=== PATIENT | male | born 1935 | race Caucasian/White ===

== ENCOUNTER → 2016-02-18 | Outpatient (CLI) | payer OTHER ==
--- NOTE | 2016-02-18 16:36 | RAD ---
EXAM DESCRIPTION: XR CERVICAL SPINE 2 - 3 VIEWS CLINICAL HISTORY: UNSP MALIGNANT NEOPLASM COMPARISON: None available FINDINGS: Three views of the cervical spine foot show no vertebral body fracture or subluxation. There is no lytic or sclerotic bone lesion. Spine as well seen only to the C5 level on the lateral view. The spinous processes appear intact. There is no prevertebral soft tissue swelling. There are degenerative changes in the cervical spine at several levels including facet joint degeneration. IMPRESSION: Mild multilevel degenerative changes, but no acute cervical spine abnormality. No radiographic evidence of bony metastatic disease. Electronically signed by: Maurilio Abdullahi DO 02/18/2016 16:34
--- NOTE | 2016-02-18 16:36 | RAD ---
EXAM DESCRIPTION: XR SHOULDER 2 OR MORE VIEWS CLINICAL HISTORY: UNSP MALIGNANT NEOPLASM COMPARISON: None available FINDINGS: Two views of the left shoulder show no acute fracture or malalignment. There are degenerative changes in the left glenohumeral joint including joint space narrowing and osteophyte formation. The left AC joint appears fairly well maintained. There is no apparent left-sided rib fracture. There is a questionable ovoid soft tissue density mass in the supraclavicular soft tissues measuring up to 3 cm diameter. IMPRESSION: Possible 3 cm soft tissue mass in the left supraclavicular region. Adenopathy is not excluded. CT chest and/or neck with IV contrast may be helpful for further evaluation. Degenerative changes in the left glenohumeral joint, otherwise unremarkable exam. Electronically signed by: Maurilio Abdullahi DO 02/18/2016 16:33
--- NOTE | 2016-02-20 17:16 | CT ---
EXAM DESCRIPTION: CT UPPER EXTREMITY WITHOUT THEN WITH IV CONTRAST CLINICAL HISTORY: 80 y/o M, SOFT TISSUE DISORDER COMPARISON: None TECHNIQUE: Thin slice axial imaging of the left shoulder was performed with IV contrast. Data was reconstructed for interpretation. FINDINGS: No evidence of carotid artery narrowing on today's study. Limited images of the mediastinum demonstrate no lymphadenopathy. The left lung demonstrates no evidence of nodularity or emphysematous changes. There is degenerative change of the acromioclavicular joint with articular cartilage loss, subchondral sclerosis and osteophyte formation. The glenohumeral interval is unremarkable measuring 7 mm in diameter. There is severe near complete articular cartilage loss of the glenohumeral joint with subchondral sclerosis, micro cyst formation osteophyte formation. There is no evidence of a fracture on today's study. No evidence of rotator cuff muscle atrophy. IMPRESSION: Today's exam demonstrates severe degenerative change of the glenohumeral joint and acromioclavicular joint with near complete joint space loss, osteophyte formation and subchondral cystic change. No evidence of fracture on today's exam. No evidence of rotator cuff muscle atrophy. Electronically signed by: Frantz Tate MD 02/20/2016 17:14
== END ==
LOC: RAD 15:47
PROVIDERS: ATTEND Nurse Practitioner Family
DX: C44.601 Unspecified malignant neoplasm of skin of unspecified upper limb, including shoulder (principal); M54.2 Cervicalgia; M25.519 Pain in unspecified shoulder; M12.88 Other specific arthropathies, not elsewhere classified, other specified site; M12.812 Other specific arthropathies, not elsewhere classified, left shoulder; I10 Essential (primary) hypertension; M79.9 Soft tissue disorder, unspecified

== ENCOUNTER → 2016-11-16 | Outpatient (CLI) | payer OTHER ==
--- NOTE | 2016-11-16 13:09 | RAD ---
EXAM DESCRIPTION: Foot,Right 3 Views CLINICAL HISTORY: 81 years Male, PAIN COMPARISON: None. FINDINGS: 3 views of the right foot show no acute fracture or malalignment. There is a moderate-sized plantar calcaneal enthesophyte. No radiopaque foreign body or soft tissue gas. IMPRESSION: Calcaneal spurring, otherwise unremarkable exam. Electronically signed by: Maurilio Abdullahi MD 11/16/2016 1:07 PM CDT
--- NOTE | 2016-11-16 13:09 | RAD ---
EXAM DESCRIPTION: Foot,Left 3 Views CLINICAL HISTORY: 81 years Male, PAIN COMPARISON: None. FINDINGS: 3 views of the left foot show no acute fracture or malalignment. There is no joint space narrowing. There is a small plantar calcaneal enthesophyte. No radiopaque foreign body or soft tissue gas. IMPRESSION: Calcaneal spurring, otherwise unremarkable exam. Electronically signed by: Maurilio Abdullahi MD 11/16/2016 1:08 PM CDT
== END ==
LOC: RAD 08:39
PROVIDERS: ATTEND Orthopaedic Surgery
DX: M79.671 Pain in right foot (principal); M79.672 Pain in left foot; M77.32 Calcaneal spur, left foot; M77.31 Calcaneal spur, right foot

== ENCOUNTER 2018-02-28 08:00 | Day surgery (SDC) | payer OTHER ==
[2018-02-28] MEDS ORDERED: TROP 1%/CYCLOPEN 1%/PHENYL 2% DROPS OPHTH ONE (09:30)
[2018-02-28] MEDS ORDERED: PROPARACAINE 0.5% OPHTH SOL 15 ML BTTL RIGHT_EYE ONE (09:33)
[2018-02-28] MEDS ORDERED: LIDOCAINE 1% 2 ML VIAL INJ ONE (09:41)
[2018-02-28] MEDS ORDERED: TOBRAMYCIN SULF 0.3 % OPHT SOL 1 DROP RIGHT_EYE ONE ×2 (09:42→09:52)
[2018-02-28] MEDS ORDERED: DEXAMETHASONE 0.1% OPHTH SOL 1 DROP RIGHT_EYE ONE ×2 (09:42→09:52)
[2018-02-28] MEDS ORDERED: BRIMONIDINE 0.2% OPHTH DROPS RIGHT_EYE ONE ×2 (09:42→09:52)
[2018-03-01] MEDS ORDERED: MIDAZOLAM INJ 2 MG/2 ML VIAL IV ONE ×2 (09:29→09:38)
== END 2018-02-28 10:31 | disposition home or self-care (01) ==
LOC: AMB 08:00
PROVIDERS: ATTEND Ophthalmology
DX: H25.11 Age-related nuclear cataract, right eye (principal); I10 Essential (primary) hypertension; Z85.038 Personal history of other malignant neoplasm of large intestine

== ENCOUNTER 2018-03-14 05:29 | Day surgery (SDC) | payer OTHER ==
[2018-03-14] MEDS ORDERED: PROPARACAINE 0.5% OPHTH SOL 15 ML BTTL ONE (05:49)
[2018-03-14] MEDS ORDERED: MOXIFLOXACIN HCL (OPHTH) 1 DROP DROPS ONE (05:49)
[2018-03-14] MEDS ORDERED: TROP 1%/CYCLOPEN 1%/PHENYL 2% DROPS ONE (05:49)
[2018-03-14] MEDS ORDERED: MIDAZOLAM INJ 2 MG/2 ML VIAL ONE (06:54)
[2018-03-14] MEDS ORDERED: LIDOCAINE 1% MPF 5 ML VIAL INJ ONE (08:40)
[2018-03-14] MEDS ORDERED: MOXIFLOXACIN HCL (OPHTH) 1 DROP DROPS LEFT_EYE ONE ×2 (08:41→08:53)
[2018-03-14] MEDS ORDERED: BRIMONIDINE 0.2% OPHTH DROPS LEFT_EYE ONE ×2 (08:41→08:53)
[2018-03-14] MEDS ORDERED: TOBRAMYCIN SULF 0.3 % OPHT SOL 1 DROP LEFT_EYE ONE ×2 (08:41→08:53)
[2018-03-14] MEDS ORDERED: DEXAMETHASONE 0.1% OPHTH SOL 1 DROP LEFT_EYE ONE ×2 (08:41→08:53)
== END 2018-03-14 09:33 | disposition home or self-care (01) ==
LOC: AMB 05:29
PROVIDERS: ATTEND Ophthalmology
DX: H26.8 Other specified cataract (principal); I10 Essential (primary) hypertension; F17.290 Nicotine dependence, other tobacco product, uncomplicated; Z85.038 Personal history of other malignant neoplasm of large intestine
CPT/HCPCS: 00142; 66984; J2250

== ENCOUNTER 2018-05-19 09:40 | Inpatient (IN) | payer OTHER ==
--- NOTE | 2018-05-19 10:15 | ED.PDOC ---
History of Present Illness - General Chief Complaint: Lower Extremity Injury Stated Complaint: L hip discomfort and deformity Time Seen by Provider: 05/19/18 10:01 Source: patient Exam Limitations: no limitations - History of Present Illness Initial Comments: PT WALKING DOWN SOME STEPS WHEN HE SLIPPED AND FELL ON HIS BUTTOCKS. C/O PAIN TO L HIP Severity: moderate Improving Factors: nothing Worsening Factors: movement Associated Symptoms: denies symptoms Allergies/Adverse Reactions: Allergies NO KNOWN ALLERGY Allergy (Verified 05/19/18 09:50) Home Medications: Ambulatory Orders Omeprazole 20 mg PO DAILY 05/19/18 Ondansetron [Ondansetron Odt] 4 mg PO TID PRN 05/19/18 Probiotic Product [Restora] 1 cap PO DAILY 05/19/18 Review of Systems - Review of Systems Constitutional: States: no symptoms reported EENTM: States: no symptoms reported Respiratory: Denies: short of breath Cardiology: Denies: chest pain, syncope Gastrointestinal/Abdominal: Denies: nausea, vomiting Genitourinary: States: no symptoms reported Musculoskeletal: States: joint pain. Denies: back pain, neck pain Skin: Denies: change in color Neurological: Denies: numbness, tingling, weakness Endocrine: States: no symptoms reported Hematologic/Lymphatic: States: no symptoms reported Past Medical History (General) - Patient Medical History Hx Stroke: No Hx Congestive Heart Failure: No Hx Diabetes: No Hx Gastroesophageal Reflux: Yes Hx MRSA: No - Vaccination History Hx Tetanus, Diphtheria Vaccination: No Hx Influenza Vaccination: No Hx Pneumococcal Vaccination: No - Social History Hx Tobacco Use: No Hx Alcohol Use: Yes - Occasional Family Medical History - Family History Father Family History: No Known Living Status: Physical Exam - Physical Exam General Appearance: Alert, No apparent distress Eye Exam: bilateral normal Ears, Nose, Throat: normal ENT inspection Neck: non-tender, full range of motion, supple, normal inspection Respiratory: lungs clear, no respiratory distress Cardiovascular/Chest: regular rate, rhythm, no murmur Gastrointestinal/Abdominal: non tender, soft, no organomegaly Extremity: non-tender, normal inspection, other - NO C/T/L SPINE TTP Neurologic: no motor/sensory deficits, alert, normal mood/affect Skin Exam: normal color, warm/dry, other - NO ECCHYMOSIS Lymphatic: no adenopathy Progress - Progress Progress: 05/19/18 10:41 DR LOGAN VALENZUELA 05/19/18 10:59 D/W DR FORD WILL HAVE HOSPITALIST ADMIT SURGERY TOMORROW. D/W VIRGIL WILL ADMIT - EKG/XRAY/CT XRAY: hip - L INTERTROCHANTERIC HIP FX Departure - Departure Clinical Impression: Hip fracture Qualifiers: Encounter type: initial encounter Fracture type: closed Laterality: left Qualified Code(s): S72.002A - Fracture of unspecified part of neck of left femur, initial encounter for closed fracture Hypertension Qualifiers: Hypertension type: essential hypertension Qualified Code(s): I10 - Essential (primary) hypertension Time of Disposition: 11:05 Disposition: Admit Patient Departure Forms: ED Discharge - Pt. Copy, Patient Portal Self Enrollment Instructions: DI for Leg Pain Referrals: DIEGO ALMARAZ IV, [employer] [Primary Care Provider] - 1-2 Weeks Home Medications: Ambulatory Orders Omeprazole 20 mg PO DAILY 05/19/18 Ondansetron [Ondansetron Odt] 4 mg PO TID PRN 05/19/18 Probiotic Product [Restora] 1 cap PO DAILY 05/19/18 Decision To Admit - Decistion To Admit Decision to Admit Reason: Admit from ER Decision to Admit Date: 05/19/18 Decision to Admit Time: 10:42
[2018-05-19] MEDS ORDERED: fentaNYL CITRATE INJ 50 MCG/ML AMP IV ONE (10:38)
[2018-05-19] MEDS ORDERED: OMEPRAZOLE CAP 20 MG CAP PO ONE (10:59)
--- NOTE | 2018-05-19 11:15 | RAD ---
EXAM DESCRIPTION: Hip,Left 2 Views CLINICAL HISTORY: 82 years Male, PN, DEFORMITY COMPARISON: None available. FINDINGS: Impacted and displaced left femoral neck fracture consistent with Garden type IV femoral neck fracture. The femoral head is well contained in the acetabular fossa. The overlying soft tissues appear grossly unremarkable. IMPRESSION: 1. Garden type IV left femoral neck fracture. Electronically signed by: Edwin Rios MD 05/19/2018 11:12 AM CDT
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
[2018-05-19] MEDS ORDERED: MORPHINE SULFATE INJ 10 MG/ML VIAL ONE (12:12)
[2018-05-19] MEDS ORDERED: MORPHINE SULFATE INJ 10 MG/ML VIAL IV ONE (12:14)
[2018-05-19] MEDS ORDERED: ALUM & MAG HYDROX-SIMETHICONE 30 ML UD PO PRN (12:53)
[2018-05-19] MEDS ORDERED: ACETAMINOPHEN 325 MG TAB PO PRN (12:53)
[2018-05-19] MEDS ORDERED: MAGNESIUM HYDROXIDE 30 ML UD PO PRN (12:53)
[2018-05-19] MEDS ORDERED: MAGNESIUM SULFATE PREMIX 2GM 2 GM in PREMIX BAG 1 BAG IVPB ONE (15:11)
--- NOTE | 2018-05-19 15:13 | RAD ---
EXAM DESCRIPTION: Pelvis CLINICAL HISTORY: left hip fx s/p same level fall COMPARISON: 2 views of the left hip dated for May 2018 TECHNIQUE: AP pelvis FINDINGS: The exam demonstrates a basicervical left femoral neck fracture. Pinning of the right hip is observed. No pelvic fracture is detected. IMPRESSION: Basicervical left femoral neck fracture. Electronically signed by: Will Robbins MD 05/19/2018 3:09 PM CDT
[2018-05-19] MEDS ORDERED: MAGNESIUM SULFATE PREMIX 2GM 50 ML IVPB ONE (15:23)
[2018-05-19] MEDS: MORPHINE SULFATE INJ 10 MG/ML VIAL IV PRN (15:31)
[2018-05-19] MEDS: SODIUM CHLORIDE 0.9% (FLUSH) 10 ML SYG IV PRN (15:33)
[2018-05-19] MEDS: IV SET AND CAP CHANGE INJ INJ SCH (16:23)
[2018-05-19] MEDS: KCL 20 MEQ/NS 1,000 ML IVS PRN (16:32)
[2018-05-19] MEDS ORDERED: PANTOPRAZOLE SODIUM IV 40 MG VIAL ONE (19:18)
[2018-05-19] MEDS ORDERED: SODIUM CHLORIDE 0.9% 1000ML 1,000 ML ONE (20:59)
[2018-05-19] MEDS ORDERED: THIAMINE HCL INJ 100 MG/ML VIAL ONE (20:59)
[2018-05-19] MEDS ORDERED: MULTIPLE VITAMIN 10 ML VIAL ONE (21:00)
[2018-05-19] MEDS: MULTIPLE VITAMIN INJ 10 ML, THIAMINE HCL INJ 100 MG in SODIUM CHLORIDE 0.9% 1000ML 1,00... IVS SCH (21:20)
[2018-05-20] MEDS: KCL 20 MEQ/NS 1,000 ML IVS PRN ×2 (01:43→19:33)
[2018-05-20] MEDS: PANTOPRAZOLE SODIUM IV 40 MG VIAL IV SCH (06:06)
[2018-05-20] MEDS: ONDANSETRON INJ 4 MG/2 ML VIAL IV PRN (06:11)
[2018-05-20] MEDS: MORPHINE SULFATE INJ 10 MG/ML VIAL IV PRN (06:12)
--- NOTE | 2018-05-20 06:48 | RAD ---
Chest single view on 05/20/2018 CLINICAL INDICATION: Preop for left hip fracture fixation COMPARISON: None FINDINGS: There is mild linear atelectasis or scarring in the right lung base. Lungs are otherwise clear. Heart is upper limits normal for size. Hilar and mediastinal contours are within normal limits. Pulmonary vascularity is within normal limits. IMPRESSION: No acute disease. Electronically signed by: Chepe Harrington 05/20/2018 6:45 AM CDT
[2018-05-20] MEDS ORDERED: MAGNESIUM SULFATE PREMIX 2GM 2 GM in PREMIX BAG 1 BAG IVPB ONE (07:11)
[2018-05-20] MEDS ORDERED: MAGNESIUM SULFATE PREMIX 2GM 50 ML IVPB ONE (07:14)
--- NOTE | 2018-05-20 08:32 | CONS ---
DATE OF CONSULTATION: 05/20/18 CHIEF COMPLAINT: Left hip pain. HISTORY OF PRESENT ILLNESS: Jasper is an 81-year-old male with a history of pain in the left hip that has been present since he fell on the day of presentation. He was brought to the Emergency Room and x-rays revealed a fracture of the femoral neck. He denies any other injury associated with this, denies any loss of consciousness. I was consulted after he was admitted to our hospitalist service. PAST SURGICAL HISTORY: 1. Partial colectomy. 2. Percutaneous screw fixation of right hip fracture. 3. Multiple skin grafts. MEDICATIONS: 1. Omeprazole. ALLERGIES: NO KNOWN DRUG ALLERGIES. FAMILY HISTORY: None pertinent to today's complaint. SOCIAL HISTORY: The patient does use any illicit drugs. He does smoke and does drink on a daily basis. REVIEW OF SYSTEMS: Negative except as indicated in the History of Present Illness. PHYSICAL EXAMINATION: VITAL SIGNS: Blood pressure 155/73. Pulse 100. Respirations 16. O2 saturation 91%. Temperature 98.3. MENTAL STATUS: The patient is awake, alert, and is able to give a good history and participate in the physical. The patient is oriented to person, place and time. SKIN: Normal tone and turgor. HEENT: Normocephalic, atraumatic. Pupils equal, round and reactive. Mucosal membranes are moist. NECK: Normal range of motion. No thyromegaly, no lymphadenopathy. CHEST: Normal respiratory excursion. CARDIAC: Regular rate and rhythm. No murmurs, rubs or gallops. MUSCULOSKELETAL: Bilateral upper extremities show full range of motion without pain. Sensation is intact in the extremities and they are warm and well perfused. There is no deformity and no evidence of trauma. The right lower extremity shows no deformity. He is able to move the knee, ankle and digits. Sensation is intact. It is warm and well perfused. He has 5/5 plantar flexion strength. The left lower extremity has the leg externally rotated and slightly abducted. He does not move the leg secondary to discomfort. He has intact sensation distally and it is warm and well perfused. IMAGING: X-rays show a femoral neck fracture. ASSESSMENT: 1. Femoral neck fracture. PLAN: The plan at this point is for hemiarthroplasty. We have discussed the risks, benefits, and alternatives to that and the patient has given informed consent. #[id number] [facility]
[2018-05-20] MEDS ORDERED: ceFAZolin SODIUM 1 GM VIAL ONE (09:15)
[2018-05-20] MEDS ORDERED: VANCOMYCIN HCL INJ 1,000 MG VIAL IVPB ONE ×2 (09:50→19:21)
[2018-05-20] MEDS ORDERED: ceFAZolin SODIUM 2 GRAMS PREMI 50 ML IVPB ONE ×3 (09:50→22:45)
[2018-05-20] MEDS ORDERED: SODIUM CHLORIDE 0.9% 250ML 250 ML ONE ×2 (09:52→19:19)
[2018-05-20] MEDS ORDERED: VANCOMYCIN HCL INJ 1,000 MG in SODIUM CHLORIDE 0.9% 250ML 250 ML IVPB SCH ×2 (10:00→13:00)
[2018-05-20] MEDS ORDERED: MORPHINE SULFATE *EPIDURAL* 0.5 MG/ML VIAL ONE (10:17)
[2018-05-20] MEDS ORDERED: fentaNYL CITRATE INJ 50 MCG/ML AMP ONE (10:18)
[2018-05-20] MEDS ORDERED: BUPIVACAINE 0.5% 30 ML VIAL INJ ONE (10:20)
[2018-05-20] MEDS ORDERED: MIDAZOLAM INJ 2 MG/2 ML VIAL ONE (10:26)
[2018-05-20] MEDS ORDERED: SODIUM CHLORIDE 0.9% 1000ML 1,000 ML ONE ×3 (10:27→19:20)
[2018-05-20] MEDS ORDERED: ceFAZolin SODIUM 2 GRAMS PREMI 2 GM in PREMIX BAG 1 BAG IVPB SCH ×2 (10:30→13:00)
[2018-05-20] MEDS ORDERED: KETAMINE HCL 100 MG/ML VIAL ONE (10:50)
[2018-05-20] MEDS ORDERED: SODIUM CHLORIDE 0.9% 50 ML VIAL ONE ×3 (11:00→11:21)
[2018-05-20] MEDS ORDERED: EPINEPHrine HCL AMP 1 MG/ML AMP ONE (11:00)
[2018-05-20] MEDS ORDERED: LIDOCAINE 1% 10 ML VIAL INJ ONE (11:00)
[2018-05-20] MEDS ORDERED: ePHEDrine SULF 50 MG/ML ONE (11:00)
[2018-05-20] MEDS ORDERED: PHENYLEPHRINE INJ 1ML 10 MG/ML VIAL ONE (11:00)
[2018-05-20] MEDS ORDERED: DEXAMETHASONE INJ 10 MG/ML VIAL ONE (11:00)
[2018-05-20] MEDS ORDERED: PROPOFOL 200 MG/20 ML VIAL IV ONE (11:00)
[2018-05-20] MEDS: BUPIVACAINE LIPOSOME 13.3 MG/ML VIAL INJ ONE ×2 (11:30→12:17)
[2018-05-20] MEDS: BUPIVACAINE 0.5% 30 ML VIAL INJ ONE ×2 (11:30→12:17)
[2018-05-20] MEDS: VANCOMYCIN HCL INJ 1,000 MG VIAL IVPB ONE ×2 (11:31→12:16)
[2018-05-20] MEDS: ceFAZolin SODIUM 1 GM VIAL ONE ×2 (11:31→12:16)
[2018-05-20] MEDS ORDERED: ENOXAPARIN SODIUM 30 MG/0.3 ML SYG SUBCU SCH (13:00)
--- NOTE | 2018-05-20 13:41 | OP ---
DATE OF PROCEDURE: 05/20/18 PREOPERATIVE DIAGNOSIS: 1. Left femoral neck fracture. POSTOPERATIVE DIAGNOSIS: 1. Left femoral neck fracture. PROCEDURE: 1. Left hemiarthroplasty. SURGEON: Olman Henderson MD. FOOTBALL PAD REPAIRER: Kieran Rothman CST, SA-C. ANESTHESIA: Spinal anesthesia. COMPLICATIONS: None. FINDINGS: Transcervical femoral neck fracture. INDICATION: Mr. Lucio has a history of a fall that occurred on the day of presentation. Mr. Lucio was admitted to the hospital and I was consulted for fracture. After discussing the risks, benefits and alternatives to operative therapy, he gave informed consent for that. PROCEDURE: The patient was brought to the Operating Room and placed in supine position. Anesthesia was induced and the patient was transitioned into the lateral decubitus position. The leg and hemipelvis were sterilely prepped and draped and an incision was made centered on the greater trochanter with extension both proximally and distally. Dissection was carried down to the iliotibial band which was sharply incised along the course of its fibers. A Charnley retractor was placed and the abductor musculature was identified. The anterior one-third of the abductor musculature was elevated off the greater trochanter using electrocautery and the capsule was incised. The femoral head was removed and the primary femoral neck cut was made. The acetabulum was examined and found to be free of any significant defect, therefore attention was focused on the femur. The femoral canal was sequentially broached until an appropriate sized trial prosthesis was placed. A trial femoral head was placed and the hip was reduced. The hip was taken through a full range of motion and demonstrated stability without impingement or pending dislocation and the leg length appeared to be paresthesias. Following trialing, the trial component was removed and the femoral canal was prepared for cementation of the prosthesis. A distal cement restrictor was placed and the final component was cemented into place. The excess cement was removed and the remaining cement was allowed to cure. The final head was impacted and the hip was reduced, taken through a full range of motion, and found to be stable without impingement. The wound was thoroughly irrigated and the abductor musculature was reapproximated to the greater trochanter through drill holes using Ethibond. The repair was augmented with PDS suture and the iliotibial band was subsequently closed. The subcutaneous tissues were closed with a combination of running and interrupted subcuticular stitches, a sterile dressing was placed, and the patient was transitioned into the supine position. The patient was awoken from anesthesia and taken to the Recovery Room in stable condition. COMPONENTS: [employer] cemented stem measuring size 10 and 56 mm head, neutral neck. #[id number] MTDD
--- NOTE | 2018-05-20 14:07 | RAD ---
EXAM DESCRIPTION: Pelvis,2 or More Views CLINICAL HISTORY: 82 years Male, post op COMPARISON: May 19, 2018 FINDINGS: Two views of the pelvis demonstrate previous fixation of the right femoral head neck with threaded pins and interval placement of a bipolar prosthesis articulating with the [place] acetabulum on the left. Alignment is anatomic. IMPRESSION: Satisfactory left hip replacement with bipolar prosthesis. Electronically signed by: Paul aMrtinez MD 05/20/2018 2:04 PM CDT
--- NOTE | 2018-05-20 14:07 | RAD ---
EXAM DESCRIPTION: Hip,Left 2 Views CLINICAL HISTORY: 82 years, Male, post op COMPARISON: None TECHNIQUE: AP and frog leg lateral views of the hip FINDINGS: Two-view left hip shows total hip prosthesis in good position. No complicating process. IMPRESSION: 1. Postop changes status post hip replacement-no complicating process Electronically signed by: Freddy Mccabe MD 05/20/2018 2:04 PM CDT
[2018-05-20] MEDS: ENOXAPARIN SODIUM 30 MG/0.3 ML SYG SUBCU SCH (15:36)
[2018-05-20] MEDS ORDERED: THIAMINE HCL INJ 100 MG/ML VIAL ONE (19:20)
[2018-05-20] MEDS ORDERED: MULTIPLE VITAMIN 10 ML VIAL ONE (19:21)
[2018-05-20] MEDS: ceFAZolin SODIUM 2 GRAMS PREMI 2 GM in PREMIX BAG 1 BAG IVPB SCH (19:39)
--- NOTE | 2018-05-20 20:17 | PN ---
DATE: 05/20/18 SUPERVISING PHYSICIAN: Eddy Rivera M.D. SUBJECTIVE: The patient is lying in bed watching television. He is drinking his clear liquid. Son is at the bedside. He had his surgical procedure done today and there were no reports of any intraoperative problems. The patient has no complaints postoperatively. No complaints of nausea, vomiting, shortness of breath or chest pain. OBJECTIVE: VITAL SIGNS: Temperature 97.4, heart rate 78, blood pressure 159/76, respiratory rate 20, O2 sat 96% on 2 liters nasal cannula. RESPIRATORY: Slightly diminished at the bases but otherwise clear to auscultation. CARDIAC: Regular rate and rhythm. GASTROINTESTINAL: Abdomen is soft, nondistended, non- tender. Bowel sounds are positive. EXTREMITIES: His left lateral hip has a dressing that is dry and intact. Bilateral pedal pulses are palpable at +2. LABORATORY: CBC is basically unremarkable. Sodium is slightly low but improved from yesterday at 130, chloride 98, BUN 6, creatinine 0.62, calcium 8, magnesium 1.6. All other labs and films have been reviewed via the EMR. ASSESSMENT: 1. Left intertrochanteric hip fracture status post same level fall status post left hemiarthroplasty, postoperative day #0. 2. Electrolyte imbalance with hyponatremia, hypomagnesemia and hypokalemia may be due to frequent alcohol consumption. 3 Chronic nicotine addiction. 4. Frequent alcohol usage with no signs of withdrawal. PLAN: We will continue present supportive care. We will watch for any type of alcohol withdrawal over the next several days. Orthopedic issues will be per Dr. Olman Henderson, orthopedic surgeon. He will begin physical therapy for strengthening and conditioning tomorrow. His magnesium was replaced this morning so I will recheck his labs in the morning. His home medications have been restarted. We will encourage good pulmonary hygiene and followup closely and treat as needed. #[id number] [facility]
[2018-05-20] MEDS: VANCOMYCIN HCL INJ 1,000 MG in SODIUM CHLORIDE 0.9% 250ML 250 ML IVPB SCH (20:57)
[2018-05-20] MEDS: MULTIPLE VITAMIN INJ 10 ML, THIAMINE HCL INJ 100 MG in SODIUM CHLORIDE 0.9% 1000ML 1,00... IVS SCH (20:58)
[2018-05-21] MEDS: ENOXAPARIN SODIUM 30 MG/0.3 ML SYG SUBCU SCH ×2 (02:37→15:36)
[2018-05-21] MEDS: ceFAZolin SODIUM 2 GRAMS PREMI 2 GM in PREMIX BAG 1 BAG IVPB SCH ×2 (02:38→12:49)
[2018-05-21] MEDS: PANTOPRAZOLE SODIUM IV 40 MG VIAL IV SCH (06:04)
[2018-05-21] MEDS ORDERED: VANCOMYCIN HCL INJ 1,000 MG VIAL IVPB ONE (08:06)
[2018-05-21] MEDS ORDERED: SODIUM CHLORIDE 0.9% 250ML 250 ML ONE (08:06)
[2018-05-21] MEDS ORDERED: ceFAZolin SODIUM 2 GRAMS PREMI 50 ML IVPB ONE (08:06)
[2018-05-21] MEDS: ONDANSETRON INJ 4 MG/2 ML VIAL IV PRN ×2 (09:24→15:46)
[2018-05-21] MEDS: VANCOMYCIN HCL INJ 1,000 MG in SODIUM CHLORIDE 0.9% 250ML 250 ML IVPB SCH (10:38)
[2018-05-21] MEDS ORDERED: MAGNESIUM SULFATE PREMIX 2GM 2 GM in PREMIX BAG 1 BAG IVPB ONE (15:15)
[2018-05-21] MEDS ORDERED: MAGNESIUM SULFATE PREMIX 2GM 50 ML IVPB ONE (15:33)
--- NOTE | 2018-05-21 17:47 | PN ---
DATE: 05/21/18 SUPERVISING PHYSICIAN: Jacobo Mayes M.D. SUBJECTIVE: The patient is sleeping. He awakens easily. He has no complaints of nausea, vomiting, chest pain or shortness of breath. He also has no complaints of any alcohol withdrawals. He feels like his first day of therapy was okay. OBJECTIVE: Temperature 97, heart rate 84, blood pressure 133/71, respiratory rate 18, O2 sat 94% on room air. RESPIRATORY: Essentially clear to auscultation bilaterally. He is diminished slightly throughout all lung fox. CARDIAC: Regular rate and rhythm. GASTROINTESTINAL: Abdomen is soft, nondistended, non- tender. Bowel sounds are positive. EXTREMITIES: He has a dressing to his left lateral hip that is dry and intact. Bilateral pedal pulses are palpable at +2. LABORATORY: WBCs are 10.9 with hemoglobin 12.4, hematocrit 36.4. Sodium 130, potassium 4.2, calcium 8, magnesium 1.7. All other labs and films have been reviewed via the EMR. ASSESSMENT: 1. Left intertrochanteric hip fracture status post same level fall status post left hemiarthroplasty, postoperative day #2. 2. Electrolyte imbalance with hyponatremia, hypomagnesemia and hypokalemia may be due to frequent alcohol consumption. 3 Chronic nicotine addiction. 4. Frequent alcohol usage with no signs of withdrawal. PLAN: We will continue present supportive care. Will continue to watch for any alcohol withdrawal, but so far he has not had any issues. Orthopedic issues will be per Dr. Olman Henderson, orthopedic surgeon. Physical therapy will continue for strengthening and conditioning. I have given him some magnesium replacement and will recheck that in the morning as well as his H&H. Will continue to encourage good pulmonary hygiene. Will followup closely and treat as needed. #[id number] [facility]
[2018-05-21] MEDS: KCL 20 MEQ/NS 1,000 ML IVS PRN (18:21)
[2018-05-21] MEDS ORDERED: SODIUM CHLORIDE 0.9% 1000ML 1,000 ML ONE (19:17)
[2018-05-21] MEDS ORDERED: THIAMINE HCL INJ 100 MG/ML VIAL ONE (19:17)
[2018-05-21] MEDS ORDERED: MULTIPLE VITAMIN 10 ML VIAL ONE (19:18)
[2018-05-21] MEDS: MULTIPLE VITAMIN INJ 10 ML, THIAMINE HCL INJ 100 MG in SODIUM CHLORIDE 0.9% 1000ML 1,00... IVS SCH (21:02)
[2018-05-22] MEDS: ONDANSETRON INJ 4 MG/2 ML VIAL IV PRN ×2 (00:44→07:17)
[2018-05-22] MEDS: MORPHINE SULFATE INJ 10 MG/ML VIAL IV PRN (00:44)
[2018-05-22] MEDS: KCL 20 MEQ/NS 1,000 ML IVS PRN ×2 (02:48→15:38)
[2018-05-22] MEDS: ENOXAPARIN SODIUM 30 MG/0.3 ML SYG SUBCU SCH ×2 (02:49→15:58)
[2018-05-22] MEDS: PANTOPRAZOLE SODIUM IV 40 MG VIAL IV SCH (06:15)
[2018-05-22] MEDS ORDERED: MAGNESIUM SULFATE PREMIX 2GM 50 ML IVPB ONE (07:11)
[2018-05-22] MEDS ORDERED: MAGNESIUM SULFATE PREMIX 2GM 2 GM in PREMIX BAG 1 BAG IVPB ONE (08:00)
[2018-05-22] MEDS ORDERED: PROMETHAZINE HCL INJ 25 MG in SODIUM CHLORIDE 0.9% 50ML 50 ML IVPB PRN (09:36)
[2018-05-22] MEDS ORDERED: ALPRAZolam 0.5 MG TAB PO PRN (09:40)
[2018-05-22] MEDS: LEVALBUTEROL NEBS 1.25 MG/3 ML VIAL NEB SCH ×3 (12:46→20:20)
[2018-05-22] MEDS ORDERED: BISACODYL SUPPOSITORY 10 MG PR ONE (15:31)
[2018-05-22] MEDS ORDERED: PROMETHAZINE HCL INJ 25 MG/ML VIAL ONE (15:34)
[2018-05-22] MEDS ORDERED: SODIUM CHLORIDE 0.9% 50ML 50 ML ONE (15:35)
[2018-05-22] MEDS: IV SET AND CAP CHANGE INJ INJ SCH (15:59)
--- NOTE | 2018-05-22 16:38 | CONS ---
DATE OF CONSULTATION: 05/22/18 HISTORY OF PRESENT ILLNESS: The patient is an 82 year-old male who underwent hemiarthroplasty on Wednesday after being admitted falling and having a left hip fracture. Today, he developed abdominal distention. He has been nauseated for 2 days. He is mildly tender in the abdomen. He has been made NPO by the hospitalist service and I have been asked to consult. The patient with his daughter admits that he has had problems with his bowels recently on a routine basis and they seem to have worsened. He status post colectomy by me for carcinoma in the distant past. I am uncertain of his last colonoscopy. There has been no history of blood per rectum or melenic stools and no vomiting. He has no fever and no cough. PAST MEDICAL HISTORY: 1. Gastroesophageal reflux. 2. Hypertension. 3. History of colon cancer. 4. Both right and left hip fractures repaired. 5. Injury to the right hip with chaudhary as a child. PAST SURGICAL HISTORY: CURRENT MEDICATIONS: 1. Omeprazole. 2. Probiotic. ALLERGIES: NO KNOWN DRUG ALLERGIES. FAMILY HISTORY: Positive for heart disease and liver disease. SOCIAL HISTORY: The patient lives at home. He is . He smokes a cigar daily and drinks several beers daily. No history of abnormal drug use. REVIEW OF SYSTEMS: He denies cough or shortness of breath. He denies chest pain. He does admit to nausea but no vomiting. He is passing gas over the last hour or so. Denies urinary symptoms. PHYSICAL EXAMINATION: VITAL SIGNS: He is afebrile and normotensive. GENERAL: The patient is awake, alert, cooperative and in mild distress. HEENT: Reveals the sclera to be nonicteric. Mucous membranes are moist. CHEST: He has equal breath sounds bilaterally. ABDOMEN: Soft, distended. Mildly tender especially in the epigastrium. He has decreased bowel sounds. RECTAL: Examination is deferred. EXTREMITIES: Without clubbing or cyanosis. The incision is not inspected. RADIOLOGY: Abdominal x-rays from today are reviewed and he has dilated loops of small bowel with gas but no noted air-fluid levels. He has a large amount of gas in the colon. LABORATORY: White blood cell count is up to 10.9 with hemoglobin down to 12.4 and this may just be dilutional. He has 85% neutrophils and 195,000 platelets. Electrolytes reveal potassium 4.2, sodium 131, creatinine 0.67. Liver functions and TSH were within normal limits the day before yesterday. IMPRESSION: 1. Postoperative ileus secondary to narcotic usage and decreased activity. RECOMMENDATIONS: Continue on NPO currently. Start stimulus from below with Dulcolax suppository and if the patient's nausea resolves, will begin catharsis from above also. Lab and x-rays ordered for tomorrow. The patient will continue his activity related to his hip replacement. #[id number] [facility]
--- NOTE | 2018-05-22 16:59 | PN ---
DATE: 05/21/18 SUBJECTIVE: Mr. Lucio is subjectively doing well. He has well controlled pain. OBJECTIVE: He is afebrile. Vital signs are stable. Dressing is clean, dry and intact. ASSESSMENT: 1. Status post hemiarthroplasty for femoral neck fracture. PLAN: He is going to be weightbearing as tolerated. #[id number] [facility]
--- NOTE | 2018-05-22 17:02 | PN ---
DATE: 05/22/18 SUBJECTIVE: He is doing pretty well but he is having some abdominal discomfort. He has not been able to have a bowel movement since surgery. OBJECTIVE: He is afebrile. Vital signs are stable. Wound is clean. There are no signs or symptoms of infection. ASSESSMENT: 1. Status post hemiarthroplasty. PLAN: At this point I do have some concerns about his bowels. Toya Arias and Dr. Mayes are addressing those at the current time. He has had a KUB and he is potentially going to get a CT scan today. Should the need occur, Dr. Choi will be consulted. [facility][id number] [facility]
[2018-05-22] MEDS ORDERED: SODIUM CHLORIDE 0.9% 1000ML 0 ML ONE (19:22)
[2018-05-22] MEDS ORDERED: THIAMINE HCL INJ 100 MG/ML VIAL ONE ×2 (19:23→20:48)
[2018-05-22] MEDS ORDERED: MULTIPLE VITAMIN 10 ML VIAL ONE ×2 (19:24→20:48)
[2018-05-22] MEDS: MULTIPLE VITAMIN INJ 10 ML, THIAMINE HCL INJ 100 MG in SODIUM CHLORIDE 0.9% 1000ML 1,00... IVS SCH (20:44)
[2018-05-22] MEDS ORDERED: SODIUM CHLORIDE 0.9% 1000ML 1,000 ML ONE (20:48)
[2018-05-23] MEDS: ENOXAPARIN SODIUM 30 MG/0.3 ML SYG SUBCU SCH ×2 (02:10→15:32)
[2018-05-23] MEDS: PANTOPRAZOLE SODIUM IV 40 MG VIAL IV SCH (05:37)
[2018-05-23] MEDS: LEVALBUTEROL NEBS 1.25 MG/3 ML VIAL NEB SCH ×4 (07:57→20:18)
--- NOTE | 2018-05-23 08:12 | PN ---
DATE: 05/22/18 SUPERVISING PHYSICIAN: Jacobo Mayes M.D. SUBJECTIVE: The patient complains of some mild nausea as well as abdominal pain. He said he has some problems with chronic constipation, he feels like he is somewhat constipated at this point. It was reported that nursing reported he received his IS as well as breathing treatments oxygen, I encouraged him that it was beneficial for him to do his respiratory treatments as it would be problematic if he got pneumonia.. OBJECTIVE: VITAL SIGNS: Temperature 97.2, heart rate 93, blood pressure 165/79, respiratory rate 18, O2 sat 92% on room air. RESPIRATORY: Diminished breath sounds throughout. CARDIAC: Regular rate and rhythm. GASTROINTESTINAL: Abdomen is rounded, slightly distended. He is diffusely tender. Bowel sounds are diminished. NEURO: He is awake, alert, and oriented x3. LABORATORY: WBCs are 10.9 with hemoglobin 12.4, hematocrit 36.4. Neutrophils 84.7, sodium slightly low at 131 with chloride of 99. Magnesium 1.6, calcium 7.8. Abdominal x-ray shows moderate gaseous distention and multiple loops of small bowel. There is also mild gastric distention of the colon, findings suggest ileus. Chest x-ray is unavailable at this time. All other labs and films have been reviewed via the EMR. ASSESSMENT: 1. Left intertrochanteric hip fracture status post same level fall status post left hemiarthroplasty, postoperative day #3. 2. Abdominal pain with concerns for developing a small bowel ileus. Dr. Choi has been consulted. 2. Electrolyte imbalance requiring supplementation. 3 Chronic nicotine addiction. 4. Frequent alcohol usage with no signs of withdrawal. PLAN: We will continue present supportive care. I have consulted Dr. Choi. Patient is n.p.o. at this time and I will follow Dr. Choi's recommendation. I have encouraged him to do an incentive spirometry and we will continue with aggressive pulmonary toilet. The patient has been instructed on his pulmonary hygiene and orthopedic issues will be per Dr. Olman Henderson, orthopedic surgeon. He will continue with his physical therapy for strengthening and conditioning. I am not sure what his discharge plans will be. We will explore that on Wednesday. Dr. Henderson has been informed of patient's ileus and we will continue to monitory him closely and follow as needed. [id number]
--- NOTE | 2018-05-23 08:20 | RAD ---
5 Radiographs of the Abdomen. Indication: fu ileus Comparison: May 22, 2018. Impression: Mild bibasilar atelectasis No free air. Persistent gaseous distention of the colon suggesting ileus. There are however several loops of air-filled small bowel in the left upper quadrant measuring up to 3.6 cm in diameter. This could relate to ileus as well, however small bowel obstruction is not excluded. No abnormal calcifications. Post surgical changes of the bilateral hips redemonstrated. Osteopenia. If this is a new finding, DEXA scan recommended as well as evaluation for possible osteoporosis treatment. Electronically signed by: Darinel Garza MD 05/23/2018 8:17 AM CDT
[2018-05-23] MEDS ORDERED: BISACODYL SUPPOSITORY 10 MG PR ONE (10:26)
[2018-05-23] MEDS ORDERED: MAGNESIUM HYDROXIDE 30 ML UD PO ONE (10:26)
--- NOTE | 2018-05-23 16:28 | PN ---
DATE: 05/23/18 SUPERVISING PHYSICIAN: .Paul Haddad MD SUBJECTIVE: The patient is doing well with his physical therapy but he continues to have a little discomfort in his abdominal area. He has had several bowel movements overnight and has had some gas. He has had no nausea or vomiting. He still remains n.p.o. He is again encouraged to do pulmonary hygiene for any complications of the pneumonia. . OBJECTIVE: VITAL SIGNS: Temperature 98.8, pulse 92, blood pressure 150/71, respiratory rate 18, saturation 95% on room air. Weight 100.9 kg. GENERAL: The patient appears to be comfortable, resting and in no acute distress. RESPIRATORY: Lungs are clear to auscultation bilaterally without rhonchi, rales, or wheezes. . CARDIAC: Regular rate and rhythm without appreciable murmurs, rubs, or gallops. GASTROINTESTINAL: Abdomen is mildly distended but soft with bowel sounds present. EXTREMITIES: Without any cyanosis, clubbing, or edema. Left hip has a dressing in place which is clean and dry. No signs of infection. Distal pulses are strong. Capillary refill is brisk. NEUROLOGICAL: He is alert and oriented x3. LABORATORY: White count 4,500, hemoglobin 11.4, hematocrit 33.3, platelet count 199,000, differential shows to be without a left shift. Chemistries show a persistent low sodium of 131, potassium down to 3.2, BUN 8, creatinine 0.67, calcium 7.6. ASSESSMENT: 1. Left intertrochanteric hip fracture status post same level fall status post left hemiarthroplasty, postoperative day #4. 2. Abdominal pain with continued concerns for developing a ileus, being followed by Dr. Choi. 2. Electrolyte imbalance with hyponatremia, hypokalemia requiring ongoing supplementation. 3 Chronic nicotine addiction. 4. Frequent alcohol usage with no signs of withdrawal. PLAN: We will continue follow the patient with progressive physical therapy as well as Dr. Choi's management in regards to the patient's ileus. He is to get some milk of magnesia and encouraged ambulation. We will get a CBC and x-ray in the morning as well as a BMP. He continues to be on IV fluids with normal saline with potassium. He is on DVT prophylaxis protocol. I did discuss discharge planning and at this point, they voiced they would like to try in-home physical therapy. Until the patient can transition to outpatient management, will continue to monitor and treat as needed. #[id number] [facility]
[2018-05-23] MEDS: KCL 20 MEQ/NS 1,000 ML IVS PRN (16:49)
[2018-05-23] MEDS ORDERED: THIAMINE HCL INJ 100 MG/ML VIAL ONE (20:19)
[2018-05-23] MEDS ORDERED: SODIUM CHLORIDE 0.9% 1000ML 1,000 ML ONE (20:19)
[2018-05-23] MEDS ORDERED: MULTIPLE VITAMIN 10 ML VIAL ONE (20:20)
[2018-05-23] MEDS: MULTIPLE VITAMIN INJ 10 ML, THIAMINE HCL INJ 100 MG in SODIUM CHLORIDE 0.9% 1000ML 1,00... IVS SCH (20:32)
[2018-05-24] MEDS: traMADol HCL 50 MG TAB PO PRN ×2 (00:52→20:41)
[2018-05-24] MEDS: ENOXAPARIN SODIUM 30 MG/0.3 ML SYG SUBCU SCH ×2 (03:37→15:23)
[2018-05-24] MEDS: KCL 20 MEQ/NS 1,000 ML IVS PRN ×2 (05:09→15:21)
[2018-05-24] MEDS: PANTOPRAZOLE SODIUM IV 40 MG VIAL IV SCH (06:05)
--- NOTE | 2018-05-24 08:00 | RAD ---
EXAM DESCRIPTION: Abdomen Flat Upright CLINICAL HISTORY: 82 years Male, fu ileus COMPARISON: May 23, 2018 FINDINGS: Again seen is a large amount of gas scattered throughout the colon with a few dilated gas-filled small bowel loops in the left mid abdomen, all not significantly changed from the patient's prior exam. No pneumoperitoneum or lung base abnormality. IMPRESSION: Abnormal bowel gas pattern as detailed above, not significantly changed from yesterday's exam. Findings are compatible with provided history of ileus. Distal colonic obstruction should also be considered. Electronically signed by: Maurilio Abdullahi MD 05/24/2018 7:57 AM CDT
[2018-05-24] MEDS: LEVALBUTEROL NEBS 1.25 MG/3 ML VIAL NEB SCH ×4 (08:21→20:27)
[2018-05-24] MEDS ORDERED: BISACODYL SUPPOSITORY 10 MG PR ONE (10:44)
[2018-05-24] MEDS ORDERED: MAGNESIUM HYDROXIDE 30 ML UD PO ONE (10:44)
[2018-05-24] MEDS ORDERED: THIAMINE HCL INJ 100 MG/ML VIAL ONE (19:24)
[2018-05-24] MEDS ORDERED: MULTIPLE VITAMIN 10 ML VIAL ONE (19:24)
[2018-05-24] MEDS ORDERED: SODIUM CHLORIDE 0.9% 1000ML 1,000 ML ONE (19:24)
[2018-05-24] MEDS: MULTIPLE VITAMIN INJ 10 ML, THIAMINE HCL INJ 100 MG in SODIUM CHLORIDE 0.9% 1000ML 1,00... IVS SCH (20:40)
[2018-05-25] MEDS: ENOXAPARIN SODIUM 30 MG/0.3 ML SYG SUBCU SCH ×2 (02:42→14:46)
[2018-05-25] MEDS: KCL 20 MEQ/NS 1,000 ML IVS PRN ×2 (03:54→13:03)
[2018-05-25] MEDS: PANTOPRAZOLE SODIUM IV 40 MG VIAL IV SCH (06:07)
--- NOTE | 2018-05-25 08:28 | PN ---
DATE: 05/23/18 SUBJECTIVE: Mr. Lucio is improved and his bowels have improved. He is having bowel movements. OBJECTIVE: Afebrile. Vital signs stable. Wound is clean. There are no signs or symptoms of infection. ASSESSMENT: Status post hemiarthroplasty. PLAN: The plan at this point is for him to continue with weightbearing as tolerated. [facility][id number] [facility]
--- NOTE | 2018-05-25 08:29 | PN ---
DATE: 05/24/18 SUBJECTIVE: Mr. Lucio continues to improve and has had no more issues with his bowels. OBJECTIVE: Afebrile. Vital signs stable. Wound is clean. There are no signs or symptoms of infection. ASSESSMENT: Status post hemiarthroplasty. PLAN: He will continue with weightbearing as tolerated. #[id number] [facility]
[2018-05-25] MEDS: LEVALBUTEROL NEBS 1.25 MG/3 ML VIAL NEB SCH (08:30)
[2018-05-25] MEDS ORDERED: MAGNESIUM HYDROXIDE 30 ML UD PO ONE (09:25)
[2018-05-25] MEDS ORDERED: LEVALBUTEROL NEBS 1.25 MG/3 ML VIAL NEB PRN (11:12)
[2018-05-25] MEDS: IV SET AND CAP CHANGE INJ INJ SCH (13:03)
[2018-05-25] MEDS: traMADol HCL 50 MG TAB PO PRN (13:12)
[2018-05-25] MEDS ORDERED: THIAMINE HCL INJ 100 MG/ML VIAL ONE (19:28)
[2018-05-25] MEDS ORDERED: SODIUM CHLORIDE 0.9% 1000ML 1,000 ML ONE (19:28)
[2018-05-25] MEDS ORDERED: MULTIPLE VITAMIN 10 ML VIAL ONE (19:28)
[2018-05-25] MEDS: MULTIPLE VITAMIN INJ 10 ML, THIAMINE HCL INJ 100 MG in SODIUM CHLORIDE 0.9% 1000ML 1,00... IVS SCH (20:30)
[2018-05-26] MEDS: KCL 20 MEQ/NS 1,000 ML IVS PRN ×2 (01:42→10:21)
[2018-05-26] MEDS: ENOXAPARIN SODIUM 30 MG/0.3 ML SYG SUBCU SCH ×2 (02:49→16:01)
[2018-05-26] MEDS: PANTOPRAZOLE SODIUM IV 40 MG VIAL IV SCH (06:02)
[2018-05-26] MEDS: traMADol HCL 50 MG TAB PO PRN (06:11)
[2018-05-26] MEDS: ONDANSETRON INJ 4 MG/2 ML VIAL IV PRN (07:09)
--- NOTE | 2018-05-26 08:38 | PN ---
SUPERVISING PHYSICIAN: Paul Haddad MD DATE: 05/24/18 SUBJECTIVE: The patient continues to have some mild abdominal discomfort, but is having bowel sounds and bowel movements. He is again encouraged to do his deep breathing exercises. OBJECTIVE: VITAL SIGNS: Temperature 98.3. Pulse 80. Blood pressure 158/72. Respiratory rate 16. Oxygen saturation 94% on room air. RESPIRATORY: Lungs are clear to auscultation. CARDIAC: Regular rate and rhythm. GASTROINTESTINAL: Abdomen is soft, nontender with positive bowel sounds. EXTREMITIES: Trace amount of edema to the left lower extremity. Left hip has a clean dressing in place which is without signs of infection. NEUROLOGICAL: He is alert and oriented x3. LABORATORY: Chemistry shows sodium 134, potassium 3.3, BUN 9, creatinine 0.61, magnesium 1.9. RADIOLOGY: Abdominal series per radiologic interpretation showed abnormal bowel gas. Please see that report for full details. ASSESSMENT: 1. Left intertrochanteric hip fracture status post same level fall status post left hemiarthroplasty, postoperative day #5. 2. Abdominal pain with continued concerns for developing a ileus, being followed by Dr. Choi. 2. Electrolyte imbalance with hyponatremia, hypokalemia requiring ongoing supplementation. 3 Chronic nicotine addiction. 4. Frequent alcohol usage with no signs of withdrawal. PLAN: We will continue follow the patient with progressive physical therapy as well as Dr. Choi's management in regards to the patient's ileus. He continues to get Milk of Magnesia. We will plan to repeat labs in the morning. Continue IV fluids. He is again encouraged to do deep breathing exercises. He will continue with physical therapy and defer orthopedic management to Dr. Henderson and physical therapy. Hopefully, in the next 48 hours, the patient can transition to outpatient management. #[id number] [facility]
--- NOTE | 2018-05-26 08:42 | PN ---
SUPERVISING PHYSICIAN: Paul Haddad MD DATE: 05/25/18 SUBJECTIVE: The patient today notes he has had multiple bowel movements. He is no longer having any abdominal pain. He has been working with physical therapy. OBJECTIVE: VITAL SIGNS: Temperature 98. Pulse 94. Blood pressure 189/80. Respiratory rate 18. Oxygen saturation 97% on room air. RESPIRATORY: Lungs are clear to auscultation, slightly diminished towards the bases. CARDIAC: Regular rate and rhythm. GASTROINTESTINAL: Abdomen is soft, obese, but nontender with positive bowel sounds. EXTREMITIES: Left hip has a clean and dry dressing in place. Capillary refill is brisk. NEUROLOGICAL: He is alert and oriented x3. LABORATORY: Chemistry today shows sodium 132, potassium 3.2, BUN 6, creatinine 0.6, calcium 7.6. ASSESSMENT: 1. Left intertrochanteric hip fracture status post same level fall status post left hemiarthroplasty, postoperative day #6. 2. Abdominal pain with continued concerns for developing a ileus, being followed by Dr. Choi. 2. Electrolyte imbalance with hyponatremia, hypokalemia requiring ongoing supplementation. 3 Chronic nicotine addiction. 4. Frequent alcohol usage with no signs of withdrawal. PLAN: The patient will continue with physical therapy. Dr. Choi has advanced his diet. He has had several bowel movements and no longer having any pain in regards to the abdomen. We will continue to follow the patient along with Dr. Choi and hopefully be able to transition the patient to outpatient physical therapy in the next 24 to 48 hours. Once discharged, he will need close followup with physical therapy at home through [facility]. Until he can transition to outpatient management, we will continue to monitor and treat as needed. [facility][id number] [facility]
--- NOTE | 2018-05-26 09:02 | PN ---
DATE: 05/26/18 SUBJECTIVE: Mr. Lucio is doing pretty well. He is up to a chair although he has had some nausea. OBJECTIVE: Afebrile. Vital signs stable. Wound is clean. There are no signs or symptoms of infection. ASSESSMENT: Status post hemiarthroplasty. PLAN: The plan at this point is for him to continue with his weightbearing as tolerated status. #[id number] [facility]
--- NOTE | 2018-05-26 11:21 | RAD ---
EXAM DESCRIPTION: Abdomen Flat Upright CLINICAL HISTORY: 82 years Male, ileus COMPARISON: May 24, 2018 FINDINGS: Again seen are multiple air-fluid levels in the GI tract with a large amount of gas scattered in the colon. There are a few dilated gas-filled small bowel loops in the mid abdomen. No pneumoperitoneum. Postoperative changes in both hips partially visualized. IMPRESSION: Abnormal bowel gas pattern is detailed above most compatible with ileus. Overall, no significant change from two days prior. Electronically signed by: Maurilio Abdullahi MD 05/26/2018 11:18 AM CDT
[2018-05-26] MEDS ORDERED: MAGNESIUM HYDROXIDE 30 ML UD PO ONE (12:56)
[2018-05-26] MEDS ORDERED: BISACODYL SUPPOSITORY 10 MG PR ONE (12:56)
[2018-05-26] MEDS ORDERED: POTASSIUM CHLORIDE 20 MEQ TAB PO ONE (13:03)
--- NOTE | 2018-05-26 14:19 | PN ---
SUPERVISING PHYSICIAN: Paul Haddad MD DATE: 05/26/18 SUBJECTIVE: The patient is sitting up in his chair. He complains of not being able to pass gas. He had one episode of nausea early this morning, but otherwise has had no nausea or vomiting or shortness of breath. He also has had some small semi-liquid bowel movements and no significant abdominal pain. OBJECTIVE: VITAL SIGNS: Temperature 98.4. Heart rate 81. Blood pressure 169/81. Respiratory rate 18. O2 saturation 93% on room air. RESPIRATORY: Essentially clear to auscultation, but diminished at the bases. CARDIAC: Regular rate and rhythm. GASTROINTESTINAL: Abdomen is nondistended, but soft, very mildly diffusely tender. No rebound tenderness, no guarding. Bowel sounds are hypoactive in the right upper, left upper and left lower quadrant, slightly more active bowel sounds in the right lower quadrant. NEUROLOGIC: Awake, alert and oriented times three. LABORATORY: Sodium 132, potassium 3.1, chloride 97, BUN 6, creatinine 0.69, calcium 7.7. Abdominal x-ray shows abnormal bowel gas pattern most compatible with an ileus. Overall, no significant change from previous. All other labs and films have been reviewed via the EMR. ASSESSMENT: 1. Left intertrochanteric hip fracture status post same level fall status post left hemiarthroplasty, postoperative day #7. 2. Abdominal pain consistent with ileus, being followed by Dr. Choi. 2. Electrolyte imbalance, improving, but today, he is slightly hypokalemic requiring supplementation. 3 Chronic nicotine addiction. 4. Frequent alcohol usage with no signs of withdrawal. PLAN: We will continue present supportive care. I have decreased his IV fluids to 60. Dr. Chio is also seeing the patient today and will give him some Milk of Magnesia as well as Dulcolax suppository. I will do an abdominal x-ray in the morning. If he does not improve, we may need to do a CAT scan early. We will continue him on clear liquids for now. I given him some potassium supplementation as well as ordered some lab for the in the morning. We will continue to monitor the patient closely and follow as needed. #[id number] [facility]
[2018-05-26] MEDS: SULFA/TRIMETH 800/160 (DS) TAB 1 EA TAB PO SCH (20:08)
[2018-05-26] MEDS ORDERED: THIAMINE HCL INJ 100 MG/ML VIAL ONE (20:18)
[2018-05-26] MEDS ORDERED: MULTIPLE VITAMIN 10 ML VIAL ONE (20:18)
[2018-05-26] MEDS ORDERED: SODIUM CHLORIDE 0.9% 1000ML 1,000 ML ONE (20:18)
[2018-05-26] MEDS: MULTIPLE VITAMIN INJ 10 ML, THIAMINE HCL INJ 100 MG in SODIUM CHLORIDE 0.9% 1000ML 1,00... IVS SCH (20:58)
[2018-05-27] MEDS: ENOXAPARIN SODIUM 30 MG/0.3 ML SYG SUBCU SCH ×2 (03:11→14:32)
[2018-05-27] MEDS: traMADol HCL 50 MG TAB PO PRN (06:09)
[2018-05-27] MEDS: PANTOPRAZOLE SODIUM IV 40 MG VIAL IV SCH (06:10)
[2018-05-27] MEDS: KCL 20 MEQ/NS 1,000 ML IVS PRN (06:12)
--- NOTE | 2018-05-27 07:23 | RAD ---
PROCEDURE: XR Abdomen, 2 Views CLINICAL INDICATION: The patient is 82 years old and is Male; ileus TECHNIQUE: Frontal view of the abdomen/pelvis with upright view of the abdomen. COMPARISON: Prior study from one day earlier. FINDINGS: INTRAPERITONEAL SPACE: No free air. GASTROINTESTINAL TRACT: Again, there are air-fluid levels within the dilated colon. There is a paucity of gas in the rectum. BONES/JOINTS: Dynamic hip screws in the RIGHT hip and a total LEFT hip arthroplasty are noted. There are degenerative changes in the lower lumbar spine. IMPRESSION: Persistent colonic dilatation which may be from aperistaltic adynamic colonic ileus. Distal colonic obstruction is not excluded. Recommend better anatomic evaluation with CT at this point. Electronically signed by: Mason Denson MD 05/27/2018 7:20 AM CDT
[2018-05-27] MEDS: SULFA/TRIMETH 800/160 (DS) TAB 1 EA TAB PO SCH ×2 (07:53→20:32)
[2018-05-27] MEDS ORDERED: MAGNESIUM SULFATE PREMIX 2GM 2 GM in PREMIX BAG 1 BAG IVPB ONE (08:47)
[2018-05-27] MEDS ORDERED: MAGNESIUM SULFATE PREMIX 2GM 50 ML IVPB ONE (09:51)
[2018-05-27] MEDS ORDERED: MAGNESIUM HYDROXIDE 30 ML UD PO PRN (11:46)
[2018-05-27] MEDS ORDERED: POTASSIUM CHLORIDE ELIXIR 20 MEQ/15 ML UD PO ONE (11:47)
[2018-05-27] MEDS: BISACODYL SUPPOSITORY 10 MG PR SCH (12:39)
--- NOTE | 2018-05-27 15:48 | PN ---
DATE: 05/27/18 SUPERVISING PHYSICIAN: Paul Haddad M.D. SUBJECTIVE: The patient is lying in bed. He said he passed a lot of gas over the last 12 hours as well as several bowel movements. He does feel better and he has no abdominal pain. He has had no nausea or vomiting. OBJECTIVE: VITAL SIGNS: Temperature 98.1, heart rate 82, blood pressure 186/84, respiratory rate 18, O2 sat 96% on room air. RESPIRATORY: Somewhat diminished at the bases with a few mild scattered rhonchi, otherwise clear to auscultation. CARDIAC: Regular rate and rhythm. GASTROINTESTINAL: Abdomen is soft. It is much less distended than yesterday but it is rounded. There is no rebound tenderness or guarding. Bowel sounds are positive. NEUROLOGIC: He is awake, alert and oriented times three. LABORATORY: Sodium 131, potassium 3.1, chloride 99, serum osmolality 258.8, calcium 7.8, magnesium 1.5. Abdominal x-ray looks improved since yesterday. I discussed his abdominal x-ray with Dr. Pickering, radiologist, and he agreed. The impression on the radiology interpretation shows persistent colonic dilatation which may be from aperistaltic adynamic colonic ileus. Distal colonic obstruction is not excluded. All other labs and films have been reviewed via the EMR. ASSESSMENT: 1. Left intertrochanteric hip fracture status post same level fall status post left hemiarthroplasty, postoperative day #7. 2. Abdominal pain consistent with ileus, being followed by Dr. Choi. 2. Electrolyte imbalance, specifically hypomagnesemia, hypokalemia and hypochloridemia. He is requiring supplementation. 3 Chronic nicotine addiction. 4. Frequent alcohol usage with no signs of withdrawal. PLAN: We will continue present supportive care. I have given him some magnesium this morning and I have also given him some oral potassium. I have discussed his case with Dr. Choi, general surgeon, as well as Dr. Pickering, radiologist. Since the patient has had no nausea, he has had stools as well as passing gas, we would continue present supportive care. I have ordered daily Dulcolax suppository as well as Milk of Magnesia as recommended by Dr. Choi. I will repeat his chemistries in the morning as well as a CBC. Will wait for an abdominal x-ray for Wednesday. If he tolerates his clear liquid lunch I will advance him to a full liquid dinner. Will continue to monitor closely and follow as needed. [facility][id number] [facility]
[2018-05-27] MEDS ORDERED: THIAMINE HCL INJ 100 MG/ML VIAL ONE (20:21)
[2018-05-27] MEDS ORDERED: SODIUM CHLORIDE 0.9% 1000ML 1,000 ML ONE (20:21)
[2018-05-27] MEDS ORDERED: MULTIPLE VITAMIN 10 ML VIAL ONE (20:22)
[2018-05-27] MEDS: MULTIPLE VITAMIN INJ 10 ML, THIAMINE HCL INJ 100 MG in SODIUM CHLORIDE 0.9% 1000ML 1,00... IVS SCH (21:17)
[2018-05-28] MEDS: ENOXAPARIN SODIUM 30 MG/0.3 ML SYG SUBCU SCH ×2 (02:56→14:24)
[2018-05-28] MEDS ORDERED: cloNIDine HCL 0.1 MG TAB ONE (03:47)
[2018-05-28] MEDS ORDERED: cloNIDine HCL 0.1 MG TAB PO ONE (03:47)
[2018-05-28] MEDS: PANTOPRAZOLE SODIUM IV 40 MG VIAL IV SCH (06:13)
[2018-05-28] MEDS: KCL 20 MEQ/NS 1,000 ML IVS PRN (06:13)
[2018-05-28] MEDS: SULFA/TRIMETH 800/160 (DS) TAB 1 EA TAB PO SCH ×2 (08:10→20:24)
[2018-05-28] MEDS: BISACODYL SUPPOSITORY 10 MG PR SCH (08:22)
[2018-05-28] MEDS ORDERED: LISINOPRIL 10 MG TAB ONE (12:05)
[2018-05-28] MEDS: LISINOPRIL 10 MG TAB PO SCH ×2 (12:08→20:24)
[2018-05-28] MEDS: IV SET AND CAP CHANGE INJ INJ SCH (16:05)
[2018-05-28] MEDS ORDERED: POTASSIUM CHLORIDE ELIXIR 20 MEQ/15 ML UD PO ONE (16:26)
[2018-05-28] MEDS ORDERED: MAGNESIUM SULFATE PREMIX 2GM 2 GM in PREMIX BAG 1 BAG IVPB ONE (16:26)
[2018-05-28] MEDS ORDERED: MAGNESIUM SULFATE PREMIX 2GM 50 ML IVPB ONE (16:52)
[2018-05-28] MEDS ORDERED: SODIUM CHLORIDE 0.9% 1000ML 1,000 ML ONE (19:46)
[2018-05-28] MEDS ORDERED: MULTIPLE VITAMIN 10 ML VIAL ONE (19:47)
[2018-05-28] MEDS ORDERED: THIAMINE HCL INJ 100 MG/ML VIAL ONE (19:47)
[2018-05-28] MEDS: MULTIPLE VITAMIN INJ 10 ML, THIAMINE HCL INJ 100 MG in SODIUM CHLORIDE 0.9% 1000ML 1,00... IVS SCH (20:24)
[2018-05-28] MEDS: SODIUM CHLORIDE 0.9% (FLUSH) 10 ML SYG IV PRN (20:24)
[2018-05-28] MEDS: traMADol HCL 50 MG TAB PO PRN (21:32)
[2018-05-29] MEDS: ENOXAPARIN SODIUM 30 MG/0.3 ML SYG SUBCU SCH ×2 (02:29→15:23)
[2018-05-29] MEDS: PANTOPRAZOLE SODIUM IV 40 MG VIAL IV SCH (05:42)
--- NOTE | 2018-05-29 07:30 | RAD ---
EXAM: XR Abdomen, 2 Views CLINICAL HISTORY: The patient is 82 years old and is Male; ileus TECHNIQUE: Frontal view of the abdomen/pelvis with upright view of the abdomen. COMPARISON: Abdominal radiograph from 05/27/2018 FINDINGS: INTRAPERITONEAL SPACE: No obvious free air. GASTROINTESTINAL TRACT: Mild gaseous distention of the colon and several small bowel loops. Overall, appearance is not significantly changed. BONES/JOINTS: Postsurgical changes of the bilateral proximal femurs again demonstrated. IMPRESSION: Persistent mild gaseous distention of the bowel, suggesting ileus. Electronically signed by: Viviana Moore MD 05/29/2018 7:27 AM CDT
[2018-05-29] MEDS: SULFA/TRIMETH 800/160 (DS) TAB 1 EA TAB PO SCH (07:59)
[2018-05-29] MEDS: traMADol HCL 50 MG TAB PO PRN (08:04)
[2018-05-29] MEDS: BISACODYL SUPPOSITORY 10 MG PR SCH (08:43)
[2018-05-29] MEDS: LISINOPRIL 10 MG TAB PO SCH (08:45)
[2018-05-29] MEDS ORDERED: MAGNESIUM SULFATE PREMIX 2GM 2 GM in PREMIX BAG 1 BAG IVPB ONE (10:05)
[2018-05-29] MEDS ORDERED: POTASSIUM CHLORIDE ELIXIR 20 MEQ/15 ML UD PO ONE (10:06)
--- NOTE | 2018-05-29 10:24 | PN ---
DATE: 05/28/18 SUPERVISING PHYSICIAN: Paul Haddad M.D. SUBJECTIVE: The patient is sitting up in his bed. He is beginning to eat a bland diet. He said he passed gas on and off all day and had a small bowel movement. He continues to feel better, although he is quite concerned about going out in public after discharge. In the past, he has refused to go to a GI doctor or to a computer aided design technician and I explained to him that he will need to see both of them after discharge. He sees Dr. Rojo as his PCP. During the night, he also complained of some chest pain that lasted about 10 to 15 minutes. He said he gets chest pain frequently on and off for the past several years, usually it goes away within a few minutes and he has had no chest pain since that time. OBJECTIVE: VITAL SIGNS: Temperature 97.2, heart rate 92, blood pressure 159/72, respiratory rate 20, O2 sat 96% on room air. RESPIRATORY: Essentially clear to auscultation bilaterally, slightly diminished at the bases CARDIAC: Regular rate and rhythm. GASTROINTESTINAL: Abdomen is soft. It is nondistended, non-tender. Bowel sounds are positive. NEUROLOGIC: He is awake, alert and oriented times three. LABORATORY: WBCs 8.5 with hemoglobin 11.7, hematocrit 33.9. There is no shift on differential. Sodium low at 129, potassium 3.2, chloride 95, calcium 7.6, magnesium 1.5. Cardiac enzymes were negative overnight except his troponin was slightly elevated at 0.1. Repeat troponin this afternoon was 0.2. All other labs and films have been reviewed via the EMR. ASSESSMENT: 1. Left intertrochanteric hip fracture status post same level fall status post left hemiarthroplasty performed by Dr. Olman Henderson. postoperative day #8. 2. Abdominal pain consistent with ileus, being followed by Dr. Choi. 2. Electrolyte imbalance, specifically hypomagnesemia, hypokalemia and hyponatremia and hypochloridemia. He is requiring supplementation. 3 Chronic nicotine addiction. 4. Frequent alcohol usage with no signs of withdrawal. PLAN: We will continue present supportive care. Again, I have given him some magnesium and potassium. I will recheck his labs in the morning. I feel like he should be able to be discharged home with [facility] on discharge in the next day or 2. I will talk to Dr. Choi tomorrow to get his thoughts and recommendations. He is continuing to get his Dulcolax suppository daily as well as milk of magnesia and is continuing to have stool and passing flatus. I have advanced his diet to bland and we will see how he tolerated that overnight. He will need to see Dr. Rojo on discharge as well as followup with a GI doctor, specifically Dr. Webster as he does defecation studies and patient is definitely have issues with that, as well as a full GI workup. He will also need a cardiology consultation since he has chest pain quite frequently, although his troponin is somewhat elevated, there is no clear evidence for his troponin to be elevated. It may be secondary to mild diastolic heart failure. He has had no further complaints of chest pain and there is no evidence of any EKG changes. For now, we will continue to monitor closely and follow as needed. #[id number] MTDD
[2018-05-29] MEDS ORDERED: MAGNESIUM SULFATE PREMIX 2GM 50 ML IVPB ONE (11:53)
[2018-05-29] MEDS: SODIUM CHLORIDE 0.9% (FLUSH) 10 ML SYG IV PRN (12:00)
[2018-05-29 14:03] VITALS: BP 160/81; TEMP 97.9; O2SAT 98
--- NOTE | 2018-05-29 20:02 | DS ---
SUPERVISING PHYSICIAN: Paul Haddad M.D. DISCHARGE DIAGNOSIS: 1. Left intertrochanteric hip fracture status post same level fall status post left hemiarthroplasty performed by Dr. Olman Henderson. Postoperative day #9. 2. Abdominal pain consistent with ileus, being followed by Dr. Choi. 2. Electrolyte imbalance, specifically hypomagnesemia, hypokalemia and hyponatremia and hypochloridemia. He is requiring supplementation. 3 Chronic nicotine addiction. 4. Frequent alcohol usage with no signs of withdrawal. HISTORY OF PRESENT ILLNESS: Mr. Lucio is an 82 year-old male patient that presented to the E. R. today with left hip pain. He said he had been walking down some stairs the previous day when he slipped and fell directly onto his left hip resulting in pain. At that time he was able to get up with minimal assistance and went to a recliner where he remained until he called his daughter who brought him to the Emergency Room for evaluation. In the Emergency Room, an x-ray of his left hip demonstrated a basicervical left femoral fracture. Dr. Henderson was consulted by the E. R. physician and the patient was admitted to the hospital for preoperative workup with anticipation of a surgical procedure the day prior to admission. He was admitted in stable condition. HOSPITAL COURSE: The patient has a significant history of hyponatremia as well as electrolyte imbalance. He was given supplementation. He does have a history of drinking nightly but there were no withdrawal symptoms during his hospital stay. The next day the patient went to surgery and had a left hemiarthroplasty performed by Dr. Olman Henderson. He had no intraoperative complications and he did well several days after his surgery. On 05/22/18, he complained of some abdominal pain. He does have a significant history of bowel problems. He had a colon resection about 15 years ago. He also does not go out in public much because he has frequent diarrhea-like stools. His x-ray was consistent with possible postoperative ileus. He was placed on bowel rest and Dr. Choi was consulted. Over the next several days his diet was advanced slowly. He was also given multiple doses of Milk of Magnesia as well as laxatives. Initially his abdomen was distended and firm. He did soften up over the next several days. He did initially have multiple stools but he had a difficult time passing gas. Eventually after multiple doses of Milk of Magnesia and Dulcolax suppositories the patient began having formed stools as well as passing gas. His diet was advanced slowly. He received a bland diet yesterday and although he still had quite a bit of colon gas, the patient's abdomen is soft. It is non-tender. Bowel sounds are positive. He is tolerating his diet without any problems. During the propulsion systems engineer of 05/28/18, he did complain of some mild chest pain. He says he has had it on and off for years. His cardiac enzymes were negative except for his troponin was slightly elevated at 0.1. There were no changes on his EKG. His chest pain resolved after 15 to 20 minutes. He will be discharged home today in stable condition. LABORATORY: WBCs over the course of his hospital stay started with 9,900, it went up slightly to 10,900 and stabilized today at 7,200. H&H has been stable and is now 11.1 and 32.0. Initially there was a left shift on differential but that has normalized. Sodium is chronically low and runs between 129 and 132. Potassium and magnesium have also been low and required multiple doses of supplementation. BUN and creatinine are stable at less than 5 and 0.68. Calcium has also been low and has run in the mid 7's between 7.6 and 8. Troponin on the date that he had some mild chest pain was 0.1. His followup was 0.12. RADIOLOGY: As per the History of Present Illness. On the date he complained of abdominal pain, his x-ray showed persistent gaseous distention of the colon suggesting ileus. There are several loops of air-filled small bowel in the left upper quadrant measuring up to 3.6 cm in diameter. Most likely was ileus but small bowel obstruction was not excluded. His abdominal x-ray this morning, although improved, continued to say persistent mild gaseous distention of the bowel suggesting ileus. DISCHARGE PLAN: The patient will be discharged home in stable condition. He will have [facility] and physical therapy. He is to have a bland diet and his activity will be per Physical Therapy. He is to call Wednesday morning to Dr. Rojo's office and get a hospital followup. He also will have a hospital followup for Dr. Henderson. Due to his multiple GI problems and not seeing a GI specialist in the past, it is recommended that he followup with a GI specialist such as Dr. Webster who can do defecation studies as well as a full GI workup. Also due to the chest pain it may be beneficial for him to see a dozer operator as I do not believe the elevated troponin was due to cardiac issues. Most likely some mild congestion heart failure, although he has not been diagnosed. He is to use a Dulcolax suppository daily until he sees Dr. Rojo as well as Milk of Magnesia 30 mL daily. He was slightly hypertensive in the hospital and I started him on Lisinopril 10 mg b.i.d. He will also have Tramadol for pain. He is to return to the hospital or call Dr. Rojo's office for any problems or complications. DISCHARGE MEDICATIONS: 1. Probiotic. 2. Zofran. 3. Omeprazole. 4. Bisacodyl suppository. 5. Lisinopril. 6. Milk of Magnesia. 7. Tramadol. #[id number] [facility]
== END 2018-05-29 15:15 | disposition home health service (06) | DRG 470 ==
LOC: ER 09:40 → MS 12:09
PROVIDERS: ADMIT Nurse Practitioner Family; ATTEND Nurse Practitioner Acute Care
PROC: 0SRS019 Replacement of Left Hip Joint, Femoral Surface with Metal Synthetic Substitute, Cemented, Open Approach (ICD-10-PCS; principal; 2018-05-20 10:27)
DX: S72.142A Displaced intertrochanteric fracture of left femur, initial encounter for closed fracture (principal); K56.7 Ileus, unspecified; E87.1 Hypo-osmolality and hyponatremia; I50.30 Unspecified diastolic (congestive) heart failure; K91.89 Other postprocedural complications and disorders of digestive system; E83.42 Hypomagnesemia; E87.6 Hypokalemia; E87.8 Other disorders of electrolyte and fluid balance, not elsewhere classified; R07.9 Chest pain, unspecified; I11.0 Hypertensive heart disease with heart failure; K21.9 Gastro-esophageal reflux disease without esophagitis; R79.89 Other specified abnormal findings of blood chemistry; F17.290 Nicotine dependence, other tobacco product, uncomplicated; T40.605A Adverse effect of unspecified narcotics, initial encounter; Z82.49 Family history of ischemic heart disease and other diseases of the circulatory system; Z87.81 Personal history of (healed) traumatic fracture; Z85.038 Personal history of other malignant neoplasm of large intestine; Z60.2 Problems related to living alone; Z90.49 Acquired absence of other specified parts of digestive tract; Z72.89 Other problems related to lifestyle

== ENCOUNTER 2018-08-14 22:37 | Observation (INO) | payer OTHER ==
[2018-08-14] MEDS ORDERED: ASPIRIN (CHEWABLE) 81 MG TAB PO ONE (22:44)
--- NOTE | 2018-08-14 22:45 | ED.PDOC ---
History of Present Illness - General Chief Complaint: Chest Pain/GA Stated Complaint: Chest Pain Time Seen by Provider: 08/14/18 22:39 Source: patient Exam Limitations: no limitations - History of Present Illness Initial Comments: Jasper Naveed 83 y/o male stated not feeling well tonight at about 1900H tonight then took his blood pressure noted it was elevated BP-sytolic 190' then had dull right sided chest pains radiating to right shoulder/neck.No diaphoresis,no N/V,no SOB.Called up his daughter since patient lives by himself and was then brought to [facility].He take Lisinopril 10 mg as needed if blood pressure goes up since most BP medication that had been prescribed in the past makes him nauseated. Timing/Duration: 4-6 hours Severity: moderate Location: other - right sided CP Activities at Onset: activity Prior Chest Pain/Cardiac Workup: no prior cardiac workup Worsening Factors: nothing Nitro Today/Relief: 0.4 mg x 1, provided by ED Aspirin Treatment Today: 81 mg x 4 Associated Symptoms: other - see hpi Allergies/Adverse Reactions: Allergies NO KNOWN ALLERGY Allergy (Verified 05/19/18 09:50) Home Medications: Ambulatory Orders Omeprazole 20 mg PO DAILY 05/19/18 Lisinopril [Prinivil] 10 mg PO BID #60 tab 05/29/18 Review of Systems - Review of Systems Constitutional: States: no symptoms reported EENTM: States: no symptoms reported Respiratory: States: no symptoms reported Cardiology: States: see HPI Gastrointestinal/Abdominal: States: no symptoms reported Genitourinary: States: no symptoms reported All other Systems: Reviewed and Negative, No Change from Baseline Past Medical History (General) - Patient Medical History Hx Seizures: No Hx Stroke: No Hx Asthma: No Hx of COPD: No Hx Congestive Heart Failure: No Hx Pacemaker: No Hx Hypertension: Yes - not able to take medications Hx Diabetes: No Hx Gastroesophageal Reflux: Yes Hx MRSA: No Surgical History: other - hip surgery left - Vaccination History Hx Tetanus, Diphtheria Vaccination: No Hx Influenza Vaccination: No Hx Pneumococcal Vaccination: No - Social History Hx Tobacco Use: No Hx Alcohol Use: Yes - drinks 4 beers at night Hx Substance Use: No - Activities of Daily Living Patient Lives Alone: Yes Family Medical History - Family History Father Family History: No Known Living Status: Hx Family Congestive Heart Failure: Yes Mother Age at (years of age): 93 Hx Family Hypertension: Yes Physical Exam - Physical Exam General Appearance: Alert, Comfortable, No apparent distress Eyes, Ears, Nose, Throat Exam: normal ENT inspection Neck: non-tender, supple, normal inspection Respiratory: lungs clear, normal breath sounds, no respiratory distress Cardiovascular/Chest: normal peripheral pulses, regular rate, rhythm, no murmur Peripheral Pulses: radial,right: 2+, radial,left: 2+ Gastrointestinal/Abdominal: non tender, soft, no organomegaly Extremity: pedal edema - +1 bilaterally Neurologic: alert, oriented x 3 Skin Exam: normal color, warm/dry Progress - Progress Progress: 08/14/18 23:16 Vital Signs - 24 hr 08/14/18 08/14/18 22:48 22:50 Temperature 97.9 F Pulse Rate 85 Pulse Rate [ 85 85 Left Radial] Respiratory 20 18 Rate Blood Pressure 209/99 [Right Arm] - Results/Orders Results/Orders: 08/14/18 22:42 IV Care:Saline Lock per Protoc QSHIFT EKG Assessment DAILY 08/14/18 22:45 EKG STAT 08/15/18 00:27 TSH [THYROID STIMULATING HORMONE] Stat Laboratory Results - last 24 hr 08/14/18 08/14/18 08/15/18 22:42 22:50 00:26 WBC 10.2 RBC 4.72 Hgb 14.1 Hct 42.6 MCV 90.4 MCH 30.0 MCHC 33.2 RDW 14.2 Plt Count 272 MPV 7.1 L Absolute Neuts (auto) 7.70 H Absolute Lymphs (auto) 1.50 Absolute Monos (auto) 0.70 Absolute Eos (auto) 0.20 Absolute Basos (auto) 0.10 Neutrophils % 75.8 Lymphocytes % 14.5 L Monocytes % 7.1 Eosinophils % 2.0 Basophils % 0.6 PT 9.9 INR 0.99 PTT (SP) 27.6 Sodium 130 L Potassium 3.4 L Chloride 95 L Carbon Dioxide 25 Anion Gap 13.4 BUN 6 L Creatinine 0.98 BUN/Creatinine Ratio 6.1 L Random Glucose 122 H Serum Osmolality 259.7 L Calcium 8.8 Magnesium 1.3 L Total Bilirubin 1.6 H Direct Bilirubin 1.0 H Indirect Bilirubin 0.6 AST 252 H ALT 78 H Alkaline Phosphatase 99 Creatine Kinase 29 L CK-MB (CK-2) 0.9 CK-MB (CK-2) % Not Reportable Troponin I 0.02 0.03 B-Natriuretic Peptide 37.0 Serum Total Protein 6.7 Albumin 3.5 Urine Color Yellow Urine Appearance Clear Urine pH 7.0 Ur Specific [place] 1.020 Urine Protein Negative Urine Glucose (UA) Negative Urine Ketones 15 H Urine Blood Trace-intact H Urine Nitrite Negative Urine Bilirubin Negative Urine Urobilinogen 1.0 Ur Leukocyte Esterase Negative Urine RBC 1-3 Urine WBC 0 Ur Epithelial Cells 0 Urine Bacteria 0 Discuss test results with patient and recommended hospital OBS agreed with plan - EKG/XRAY/CT EKG: Sinus, no ST T wave changes Comments: HR-91;GA-218 ms;1o av block XRAY: chest - no acute findings;copd changes Departure - Departure Clinical Impression: Hypertensive urgency, Hypomagnesemia, Electrolyte imbalance Chest pain Qualifiers: Chest pain type: chest pain due to myocardial ischemia Ischemic chest pain type: unspecified angina pectoris type Qualified Code(s): I25.9 - Chronic ischemic heart disease, unspecified Time of Disposition: 01:13 Disposition: Admit Patient Condition: Fair Departure Forms: Patient Portal Self Enrollment Referrals: Bebeto Rojo MD [Primary Care Provider] - 1-2 Weeks Home Medications: Ambulatory Orders Omeprazole 20 mg PO DAILY 05/19/18 Lisinopril [Prinivil] 10 mg PO BID #60 tab 05/29/18 Decision To Admit - Decistion To Admit Decision to Admit Reason: Admit from ER Decision to Admit Date: 08/15/18 - D/W Toya Arias-ANP/Hospitalist Decision to Admit Time: 01:11
[2018-08-14] MEDS ORDERED: NITROGLYCERIN 0.4 MG 25 EA TAB SL ONE (22:57)
--- NOTE | 2018-08-14 23:23 | RAD ---
EXAM DESCRIPTION: Chest,1 View CLINICAL HISTORY: 83 years Male chest pain COMPARISON: 05/22/2018. FINDINGS: The patient is rotated towards the right. The cardiomediastinal silhouette appears unremarkable. Hyperexpanded lungs. Mild scarring or atelectasis at the right lung base. No consolidating infiltrates or pleural effusions. No pneumothorax. Tortuosity in the thoracic aorta which appears similar. IMPRESSION: No acute abnormality is identified. COPD. Electronically signed by: Emeka Jennings MD 08/14/2018 11:21 PM CDT
[2018-08-15] MEDS ORDERED: MAGNESIUM SULFATE PREMIX 2GM 2 GM in PREMIX BAG 1 BAG IVPB ONE (00:01)
[2018-08-15] MEDS ORDERED: SUCRALFATE 1 GM/10 ML 1 GM UD PO ONE (00:02)
[2018-08-15] MEDS ORDERED: ALUM & MAG HYDROX-SIMETHICONE 30 ML, LIDOCAINE VISCOUS 2% 15 ML PO ONE ×2 (00:02)
[2018-08-15] MEDS ORDERED: ALUM & MAG HYDROX-SIMETHICONE 30 ML UD ONE (00:03)
[2018-08-15] MEDS ORDERED: LIDOCAINE HCL 2% (MOUTH-THROAT) 15 ML UD ONE (00:03)
[2018-08-15] MEDS ORDERED: MAGNESIUM SULFATE PREMIX 2GM 50 ML IVPB ONE (00:04)
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
[2018-08-15] MEDS ORDERED: cloNIDine HCL 0.1 MG TAB PO PRN (02:56)
[2018-08-15] MEDS ORDERED: IV SET AND CAP CHANGE INJ INJ SCH (03:00)
[2018-08-15] MEDS ORDERED: SODIUM CHLORIDE 0.9% (FLUSH) 10 ML SYG IV PRN (03:00)
[2018-08-15] MEDS ORDERED: ACETAMINOPHEN 325 MG TAB PO PRN (03:00)
[2018-08-15] MEDS ORDERED: OMEPRAZOLE CAP 20 MG CAP ONE ×2 (06:58→19:53)
[2018-08-15] MEDS: SODIUM CHLORIDE 0.9% (FLUSH) 10 ML SYG IV SCH ×2 (08:36→21:15)
[2018-08-15] MEDS: LISINOPRIL 10 MG TAB PO SCH ×2 (08:36→21:15)
[2018-08-15] MEDS ORDERED: NON-FORMULARY MEDICATION 1 EA MIS (Omeprazole [Omeprazole] 20 MG) PO SCH (09:00)
[2018-08-15] MEDS ORDERED: ENOXAPARIN SODIUM 40 MG/0.4 ML SYG SUBCU SCH (21:00)
[2018-08-16 06:30] VITALS: BP 169/75; TEMP 98.1
[2018-08-16] MEDS ORDERED: OMEPRAZOLE CAP 20 MG CAP PO SCH (06:30)
[2018-08-16] MEDS: LISINOPRIL 10 MG TAB PO SCH (08:26)
--- NOTE | 2018-08-16 11:12 | DS ---
SUPERVISING PHYSICIAN: Paul Haddad MD ADMISSION DIAGNOSIS: 1. Hypertensive urgency. 2. Transaminitis. 3. Medical noncompliance. 4. Gastroesophageal reflux disease. DISCHARGE DIAGNOSIS: 1. Hypertensive urgency. 2. Transaminitis. 3. Medical noncompliance. 4. Gastroesophageal reflux disease. HOSPITAL COURSE: This is an 83-year-old male patient with a history of hypertension who came to the Emergency Room generally not feeling well. He noted his blood pressure was high. He took his blood pressure around 7 o'clock in the evening and noted systolic blood pressure to be around 190. He had some chest pain on the right side of his chest that actually radiated to his right shoulder. He did not really have any significant shortness of breath, diaphoresis or radiation up to the jaw or anything like that. He called his daughter and they ended up coming to the Emergency Room. He chronically takes lisinopril, but is described as kind of being intermittent as he does not take it quite as he should. He sees Dr. Rojo as his primary care physician. In the Emergency Room, his workup was negative for myocardial infarction. He was admitted for hypertensive urgency. This morning, he is alert and oriented with no chest pain. His blood pressure is a little bit more improved this morning at 161/78. Noted on his labs, though, is an elevation of his AST, ALT as well as bilirubin. He is not having any abdominal pain, no nausea or vomiting. He is not having any tenderness to palpation on exam either. The patient remained chest pain free and blood pressure improved during his hospitalization. The liver function tests dropped dramatically the next day, day of discharge. Therefore, he was discharged in stable condition. The patient was resumed on lisinopril 10 mg twice a day and given a prescription for clonidine 0.1 mg to be taken if the systolic blood pressure is greater than 190 or diastolic blood pressure is greater than 105. I have instructed him to followup with Dr. Rojo and further adjustments of his blood pressure medications can occur by him. I have instructed him that it is imperative that he take his blood pressure medicine to prevent stroke. He seems to verbalize understanding at this time. #[id number] MTDD
[2018-08-16 12:38] VITALS: O2SAT 93
== END 2018-08-16 09:30 | disposition home or self-care (01) ==
LOC: ER 22:37 → MS 08-15 02:01
PROVIDERS: ADMIT Nurse Practitioner Acute Care; ATTEND Nurse Practitioner
DX: I16.0 Hypertensive urgency (principal); I10 Essential (primary) hypertension; R74.0 Nonspecific elevation of levels of transaminase and lactic acid dehydrogenase [LDH]; K21.9 Gastro-esophageal reflux disease without esophagitis; E83.42 Hypomagnesemia; E87.8 Other disorders of electrolyte and fluid balance, not elsewhere classified; I44.0 Atrioventricular block, first degree; F17.290 Nicotine dependence, other tobacco product, uncomplicated; Z91.14 Patient's other noncompliance with medication regimen; Z79.899 Other long term (current) drug therapy; Z85.038 Personal history of other malignant neoplasm of large intestine; Z82.49 Family history of ischemic heart disease and other diseases of the circulatory system; Z80.0 Family history of malignant neoplasm of digestive organs
CPT/HCPCS: 96365; 96372; J1650; J3475; 80053 ×2; 36415 ×4; 82550; 80048; 82553; 85025 ×2; 85730; 85610; 84484 ×2; 81001; 80076; 83735; 84443; 83880; 71045; 94760 ×3; 99285; 93005; G0378

== ENCOUNTER → 2019-11-22 | Outpatient (CLI) | payer OTHER ==
--- NOTE | 2019-11-22 17:11 | RAD ---
EXAM DESCRIPTION: Knee,Right Complete CLINICAL HISTORY: PAIN IN RIGHT KNEE COMPARISON: None. TECHNIQUE: 4 views right FINDINGS: Loss of medial joint space is observed. Medial femoral and tibial osteophyte formation is observed. There is [id number] in the medial joint compartment. Lateral femoral and tibial osteophyte formation is noted. Mild patellofemoral joint arthritis is seen. A small joint effusion is evident. 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 Electronically signed by: Will Robbins MD 11/22/2019 5:09 PM CDT
--- NOTE | 2019-11-22 17:14 | RAD ---
EXAM DESCRIPTION: Knee,Left Complete CLINICAL HISTORY: KNEE PAIN COMPARISON: None. TECHNIQUE: 4 views left FINDINGS: Loss of medial joint space is observed. Medial femoral and tibial osteophyte formation is observed. Mild loss of lateral joint space is observed. Patellofemoral joint arthritis is seen. A small joint effusion is detected. 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 Electronically signed by: Will Robbins MD 11/22/2019 5:13 PM CDT
== END ==
LOC: YCFC.O 07:47
PROVIDERS: ATTEND Family Medicine
DX: M17.11 Unilateral primary osteoarthritis, right knee (principal); M17.12 Unilateral primary osteoarthritis, left knee; Z85.038 Personal history of other malignant neoplasm of large intestine; I10 Essential (primary) hypertension; R53.83 Other fatigue; Z13.220 Encounter for screening for lipoid disorders

== ENCOUNTER → 2019-11-28 | Outpatient (CLI) | payer OTHER ==
--- NOTE | 2019-11-30 08:42 | CT ---
Procedure: CT LUNG SCREENING Exam Date: November 28, 2019. Ordering Provider: Eleazar Crockett Clinical Indication: PERSONAL HISTORY OF TOBACCO DEPENDENCE . Current cigar smoker. 2 cigars per day, 48 years. This patient meets eligibility criteria for low-dose CT lung cancer screening. Comparison: Baseline low-dose CT lung cancer screening examination. Chest x-ray July 2018. Technique: Using a multislice scanner, sequential helical axial imaging was obtained in the thorax, 2.5 mm thickness, 2.5 mm separation, from the level of the thoracic inlet through the lung bases without IV contrast. A low dose protocol was utilized for BMI less than 30: BMI: 27.7. CTDI: 1.76 mGy. 120. kVp. 45 mA. DLP 72 mGy-cm. 2D sagittal and coronal reconstructed images, 6.0 mm thickness, were obtained. This exam was performed according to our departmental dose optimization program which includes use of automated exposure control, adjustment of the mA and/or kV according to patient size and/or use of iterative reconstruction technique. Nodule measurements under 10 mm are given as mean value of 3 axes diameters. FINDINGS: Lungs and large airways: Scattered bilateral parenchymal blebs in a centrilobular distribution and predominantly upper lung fox. Bilateral perihilar peribronchial wall cuffing. Bibasilar pleural-parenchymal scarring and posterior dependent atelectasis more prominent on the right. No abnormal nodules and no masses. No focal infiltrates. Pleura and space: No calcifications, minimal thickening. No acute process. Mediastinum and allyssa: evaluation limited by low dose technique and lack of IV contrast. Small nodes but no dominant soft tissue mass. Heart and great vessels: Minimal coronary artery calcification and aortic and brachiocephalic calcification. Chest wall, lower neck, axillae: Evaluation also limited by same factors as described above. Normal size axillary nodes. Upper abdomen: Evaluation limited by low-dose technique. No free air or free fluid in the included peritoneal space. Gallbladder visualized. Included spleen and adrenal glands normal size. Normal density of the spleen and right adrenal gland. Calcification left adrenal gland; Most likely previous hemorrhage. Osseous structures: Evaluation limited by low dose MIP technique. Spondylosis thoracic spine. Shoulder clavicle sternal arthrosis. IMPRESSION: Emphysematous changes upper lung fox. Bilateral scarring and most likely chronic atelectasis right lung base more than left. No abnormal nodules and no mass.. [facility] Best Practice Recommendations: please see below for Lung RADS category and FOLLOW-UP.* *Lung RADS category Category 1 - No nodule or definitely benign nodules (probability of malignancy less than 1%). Follow-up: Continue annual screening with Low Dose Chest CT in 12 months. Electronically signed by: Kieran Pickering MD 11/30/2019 8:40 AM CDT
== END ==
LOC: CT 08:30
PROVIDERS: ATTEND Family Medicine
DX: Z12.2 Encounter for screening for malignant neoplasm of respiratory organs (principal); J43.9 Emphysema, unspecified; J98.4 Other disorders of lung; R91.8 Other nonspecific abnormal finding of lung field; R94.31 Abnormal electrocardiogram [ECG] [EKG]; Z87.891 Personal history of nicotine dependence
CPT/HCPCS: 93017; G0297

== ENCOUNTER → 2019-12-08 | Outpatient (CLI) | payer OTHER ==
--- NOTE | 2019-12-10 18:51 | RAD ---
EXAM DESCRIPTION: Pelvis: CR/DR/XR CLINICAL HISTORY: HIP PAIN RIGHT COMPARISON: Bilateral hip radiographs May 2018. TECHNIQUE: One view AP Pelvis FINDINGS: No fracture dislocation. Moderate decrease in bone density. No abnormal radiodense objects in the soft tissues or joint spaces. Arthrosis SI joints and pubic symphysis. Minimal arthrosis superior right femoral neck. Lumbar spine spondylosis. IMPRESSION: Moderate loss of bone density. 3. Annual screening is stable in the right femoral head and neck. 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 Pelvic joint hydronephrosis. Evaluation for fracture is limited given the degree of bone density loss. If high clinical concern for acute fracture, correlation with MRI recommended given its greater sensitivity in the patient with significant bone density loss. If the patient cannot tolerate MRI imaging or more urgent imaging is required, CT could be performed, however it is less sensitive in the patient with severe bone density loss, when compared to MRI. Electronically signed by: Kieran Pickering MD 12/10/2019 6:49 PM CDT
== END ==
LOC: RAD 09:38
PROVIDERS: ATTEND Orthopaedic Surgery
DX: M85.859 Other specified disorders of bone density and structure, unspecified thigh (principal); Z96.642 Presence of left artificial hip joint